=== PATIENT | female | born 2000 | race Caucasian/White ===

== ENCOUNTER 2021-04-08 18:46 | Emergency (ER) | payer OTHER ==
[~2021-04-08] VITALS: Ht 167.6 cm; Wt 72.1 kg
[2021-04-08 18:47] VITALS: BP 134/78
[2021-04-08] MEDS ORDERED: HYDROCORTISONE 1% CREAM 30 GM TOP STA (22:09)
[2021-04-08] MEDS ORDERED: HYDR1CRE30 TOP (22:14)
== END 2021-04-08 22:34 | disposition home or self-care (01) ==
LOC: M ED 18:46
DX: S60.862A Insect bite (nonvenomous) of left wrist, initial encounter (principal); Y92.84 Military training ground as the place of occurrence of the external cause; Y93.89 Activity, other specified; Y99.1 Military activity

== ENCOUNTER 2021-07-19 22:00 | Inpatient (IN) | payer OTHER ==
[~2021-07-19] VITALS: Ht 167.6 cm; Wt 72.7 kg
[~2021-07-19 22:00] MED LIST: HYDR1CRE30 TOP
[2021-07-19 23:26] LABS: HEMATOCRIT 40.2 % (36.0-47.0); MEAN CORPUSCULAR HEMOGLOBIN 29.7 pg (27.0-33.0); MEAN CORPUSCULAR HGB CONC 32.3 g/dl (32.0-36.5); MEAN CORPUSCULAR VOLUME 91.8 fl (80.0-96.0); PLATELET COUNT, AUTOMATED 289 10^3/uL (150-450); RED BLOOD COUNT 4.38 10^6/uL (4.00-5.40); WHITE BLOOD COUNT 7.7 10^3/uL (4.0-10.0)
[2021-07-19 23:48] LABS: AMPHETAMINES LEVEL URINE NEGATIVE (NEGATIVE); BARBITURATES URINE NEGATIVE (NEGATIVE); BENZODIAZEPINES URINE NEGATIVE (NEGATIVE); CANNABINOIDS URINE NEGATIVE (NEGATIVE); COCAINE METABOLITE URINE NEGATIVE (NEGATIVE); METHADONE URINE NEGATIVE (NEGATIVE); OPIATES URINE NEGATIVE (NEGATIVE); PHENCYCLIDINE URINE NEGATIVE (NEGATIVE)
[2021-07-19 23:56] LABS: HCG, SERUM QUALITATIVE NEGATIVE (NEGATIVE)
[2021-07-20 00:07] LABS: ACETAMINOPHEN LEVEL 5.4 UG/ML (10.0-30.0); ALBUMIN 3.4 GM/DL (3.2-5.2); ALT/SGPT 28 U/L (12-78); BILIRUBIN,DIRECT 0.1 MG/DL (0.0-0.2); BILIRUBIN,TOTAL 0.3 MG/DL (0.2-1.0); BLOOD UREA NITROGEN 10 MG/DL (7-18); CALCIUM LEVEL 9.2 MG/DL (8.5-10.1); CARBON DIOXIDE LEVEL 26 MEQ/L (21-32); CHLORIDE LEVEL 111 MEQ/L (98-107); CREATININE FOR GFR 0.77 MG/DL (0.55-1.30); ETHYL ALCOHOL (ETHANOL) < 0.003 % (0.000-0.010); GLUCOSE, FASTING 96 MG/DL (70-100); POTASSIUM SERUM 3.7 MEQ/L (3.5-5.1); SALICYLATE LEVEL < 1.7 MG/DL (5.0-30.0); SODIUM LEVEL 144 MEQ/L (136-145); TOTAL PROTEIN 6.3 GM/DL (6.4-8.2)
[2021-07-20] MEDS ORDERED: NEXP1IMP SC (00:07)
[2021-07-20] MEDS ORDERED: VITMTA PO (00:07)
[2021-07-20] MEDS ORDERED: HOME MED LIST COMPLETE! XX SCH (00:10)
[2021-07-20 00:57] LABS: RSV AMPLIFICATION NEGATIVE (NEGATIVE)
[2021-07-20] MEDS ORDERED: LORazepam 1 MG TAB PO PRN (02:35)
[2021-07-20] MEDS ORDERED: MAALOX 30 ML SUSP *UDC PO PRN (02:35)
[2021-07-20] MEDS ORDERED: ACETAMINOPHEN TAB 650MG DOSE (2X325MG) PO PRN (02:35)
[2021-07-20] MEDS ORDERED: traZODone 50 MG TAB PO PRN (02:35)
[2021-07-20] MEDS ORDERED: MOM 30ML SUSPENSION UDC PO PRN (02:35)
[2021-07-20 03:07] VITALS: BP 130/77
--- NOTE | 2021-07-20 13:27 | HPEPDOC ---
[facility] Medical History & Physical Date of Admission Jul 19, 2021 Date of Service: Jul 20, 2021 History and Physical CHIEF COMPLAINT: Suicidal ideation HISTORY OF PRESENT ILLNESS: 20-year-old female presents for suicidal ideation. She states she has been suffering from fleeting suicidal thoughts for the last 2 weeks. She also endorsed having a plan to overdose. She also notes previous emotional trauma from her last deployment. On examination she denies chest pain, shortness of breath, abdominal pain, nausea, vomiting, diarrhea, headaches, changes in vision. PAST MEDICAL HISTORY: Denies PAST SURGICAL HISTORY: Denies SOCIAL HISTORY: Occasional alcohol use. Current smoker, 09/28-09/26 ppd, x 3 years. FAMILY HISTORY: Reviewed and non-contributory. REVIEW OF SYSTEMS: Negative except as per HPI. HOME MEDICATIONS: Please see below. PHYSICAL EXAMINATION: Vital Signs: reviewed General: NAD, sitting comfortably in chair HEENT: NC/AT, EOMI Neck: supple, no masses Chest: lungs CTA B/L Heart: +S1S2, RRR Abd: soft, NT, ND, +BS Ext: no edema Skin: no rashes MSK: full ROM at large joints Neuro: no gross focal deficits Psych: AAOx3 LABORATORY DATA: See below. A/P: 20-year-old female admitted for suicidal ideation, including active plan for intentional drug overdose. #SI - follow as per primary team - psychiatry Thank you for this consultation. Please reconsult as needed. Vital Signs Vital Signs Date Time Temp Pulse Resp B/P (MAP) Pulse Ox O2 Delivery O2 Flow Rate FiO2 07/20/21 03:07 96.7 71 16 130/77 (94) 100 Room Air Laboratory Data Labs 24H Laboratory Tests 2 07/19/21 22:44: Nucleated Red Blood Cells % (auto) 0.0, Anion Gap 7L, Calcium Level 9.2, Total Bilirubin 0.3, Direct Bilirubin 0.1, Aspartate Amino Transf (AST/SGOT) 26, Alanine Aminotransferase (ALT/SGPT) 28, Alkaline Phosphatase 67, Total Protein 6.3L, Albumin 3.4, Albumin/Globulin Ratio 1.2, Thyroid Stimulating Hormone (TSH) 1.310, Human Chorionic Gonadotropin, Qual NEGATIVE, Salicylates Level < 1.7L, Urine Opiates Screen NEGATIVE, Urine Methadone Screen NEGATIVE, Acetaminophen Level 5.4L, Urine Barbiturates Screen NEGATIVE, Urine Phencyclidine Screen NEGATIVE, Urine Amphetamines Screen NEGATIVE, Urine Benzodiazepines Screen NEGATIVE, Urine Cocaine Metabolite Screen NEGATIVE, Urine Cannabinoids Screen NEGATIVE, Ethyl Alcohol Level < 0.003, Coronavirus (COVID-19)(PCR) NEGATIVE, Influenza Type A (RT-PCR) NEGATIVE, Influenza Type B (RT-PCR) NEGATIVE, Respiratory Syncytial Virus (PCR) NEGATIVE CBC/BMP Laboratory Tests 07/19/21 22:44 Home Medications Scheduled Etonogestrel (Nexplanon) 68 Mg Implant, 68 MG SC ASDIRECTED IMPLANTED IN JULY 2020 Multivitamins (Thera M Plus Tablet) 1 Each Tablet, 1 TAB PO DAILY Allergies Coded Allergies: No Known Allergies (Unverified , 04/08/21) A-FIB/CHADSVASC A-FIB History Current/History of A-Fib/PAF?: No ANGEL LUIS RICKS MD Jul 20, 2021 13:27
[2021-07-20 16:15] VITALS: BP 110/55
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
[2021-07-21 06:19] VITALS: BP 105/59
--- NOTE | 2021-07-21 10:13 | MHDSPDOC ---
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 She stated that the [employer] had told her that she could not get an apartment as she hit was having some difficulty with the DMV in her car being insured. She stated that she was supposed to have acquisition of this apartment before she was deployed and she is angry that she is not able to have an apartment. When her chain of command talk to her about the apartment she reports that she was being threatened with article 15, she was talking to her grandmother at the time who was short and cut her off on the phone call, she then made the statement "if you do not see me at work tomorrow we will know why. " PER ED REPORT Pt. states, "I'm feeling suicidal and I don't think I'm safe to return home." Pt reports suffering from fleeting suicidal thoughts for the past 2 wks. Last suicidal thought with a plan to OD was reported to be 07/07/21. Today, she reports doing well until she was at friend's residence talking about her previous deployment. Another friend was present and was talking about the past trauma while deployed, which triggered her to have some flashbacks. 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 She admits he is very controlling and informed her she was no longer considered her daughter. Tonight, she was drinking "a bit" felt overwhelmed and currently voices SI. She denies a plan currently and reports only having 1 shot of ETOH tonight. Spoke to DANYELLE([phone]) who reports this is the second time pt has made a suicidal comment in the past 2 weeks. 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 VITAL SIGNS: See below. CONSULTANTS INVOLVED: See Medical H + P by Hospitalist TREATMENT AND PROGRESS ON THE UNIT: Patient was admitted to the [facility] on a 9.39 legal status was afforded the following treatment modalities: 1) Individual Therapy 2) Group Therapy 3) Medication Management 4) Milieu Therapy 5) Safe Environment HOSPITAL COURSE: Patient was admitted to [facility] on a 9.39 legal status. Patient did not want to be started on medications, stated that she had not been feeling depressed. She reports this as situational and stressor related anxiety. She was visible on the unit, pleasant and social with her peers. mood, anxiety, and intrusive thoughts improved with treatment. Pt attended groups during stay - stated that she liked going to groups that it was helpful. pts symptoms improved with treatment. On day of discharge pt. denied depression, anxiety, insomnia, SI/HI, hallucinations, delusions. Pt was discharged home with follow- up with [facility]. Pt felt safe for discharge. DISCHARGE ASSESSMENT: In today's interview, patient is alert and oriented, pt.s dress is appropriate. Hygiene and grooming is well-kempt. Smiles on approach and is pleasant and engaged in the interview. Denies depression and anxiety. Denies suicidal and homicidal ideation, planning or intent. Denies and is not observed with rebeca, psychotic symptoms of delusions, bizarre thinking, obsessions, paranoia, ruminations illogical thoughts, flight of ideas or having poor insight and judgement. Reinforced with patient need to abstain from alcohol and drugs. At discharge patient has normal mentation, declines further hospitalization on a voluntary status and meets criteria for discharge today. Discussed indications of medications, potential benefits and risks, alternatives (including no treatment) and questions were encouraged and answered. Patient encouraged to return to hospital if symptoms worsen or change and encouraged to call unit if he/she/they needs to speak to provider for questions regarding medications or care. Patient made future oriented statements stating that she is in the [employer] for 3-1/2 more years. 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 She states that she has good supports his talking to her friend Deo. Has plans for this weekend to go [place] with her "[place]". She again denied that she has suicidal thoughts reports that much of her frustration was not being able to have her apartment in getting her vehicle ensured and registered from [facility]. 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 Speech: Is fluid, conversant, normal rate, tone and volume Language skills are intact Thought processes including: linear and goal oriented Thought content: denies depression and anxiety. Denies suicidal/homicidal ideat ion, planning or intent. Abstract reasoning, and computation: fair Description of associations: denies, none observed Description of abnormal or psychotic thoughts: denies, none observed. Judgment: fair Insight: fair Orientation: alert and oriented to person, place, time and situation Recent and remote memory: intact Attention span and concentration: good Language: expansive Fund of knowledge: average Mood: Euthymic Mood Affect: reactive Suicide Risk Assessment: 1) Does the patient wish to be ? No 2) Since your admission, have you had any actual thought of killing yourself? No 3) Since your admission, have you been thinking about how you might do this? No 4) Since your admission, have you had these thoughts and had some intention of acting on them? No 5) Since your admission, have you started to work out or worked out the details of how to kill yourself? No 5A) Do you intent to carry out this plan? No and NA 6) Have you ever done anything, started anything, or prepared to do anything with any intent to ? No 6A) How long since your admission did you do any of these? NA' MEDICATIONS ON DISCHARGE: See Medication Reconciliation PLAN/FOLLOWUP ARRANGEMENTS: Pt was discharged home with follow-up with [facility]. Pt felt safe for discharge. The amount of time spent in the coordination of care for this patient was approximately 25 minutes. ETOH/Disorder Med Rx ETOH/DRUG DISORDER RX: N/A Vital Signs/I&Os Vital Signs Date Time Temp Pulse Resp B/P (MAP) Pulse Ox O2 Delivery O2 Flow Rate FiO2 07/21/21 06:19 98.3 91 12 105/59 (74) 100 Room Air Medications Scheduled Etonogestrel (Nexplanon) 68 Mg Implant, 68 MG SC ASDIRECTED, (Reported) IMPLANTED IN JULY 2020 Multivitamins (Thera M Plus Tablet) 1 Each Tablet, 1 TAB PO DAILY, (Reported) Allergies Coded Allergies: No Known Allergies (Unverified , 04/08/21) JESS HUITRON NP Jul 21, 2021 09:44
== END 2021-07-21 12:56 | disposition home or self-care (01) | DRG 882 ==
LOC: M ED 22:00 → M PSY 07-20 02:32
PROVIDERS: ADMIT Psychiatry & Neurology Psychiatry; ATTEND Psychiatry & Neurology Psychiatry
DX: F43.25 Adjustment disorder with mixed disturbance of emotions and conduct (principal); R45.851 Suicidal ideations; F39 Unspecified mood [affective] disorder; Z91.82 Personal history of military deployment; Z81.8 Family history of other mental and behavioral disorders; Z20.822 Contact with and (suspected) exposure to COVID-19; Z79.899 Other long term (current) drug therapy